=== PATIENT | male | born 1965 | race Caucasian/White ===

== ENCOUNTER 2018-10-18 05:46 | Day surgery (SDC) | payer OTHER ==
[2018-10-18] MEDS ORDERED: ONDANSETRON 4 MG INJ (07:44)
[2018-10-18] MEDS ORDERED: FENTAnyl 50 MCG/ML VIAL (08:13)
[2018-10-18] MEDS ORDERED: MIDAZOLAM 1 MG/ML 2 ML INJ ×2 (08:13)
== END 2018-10-18 10:35 | disposition home or self-care (01) ==
LOC: GIL 05:46
DX: K29.50 Unspecified chronic gastritis without bleeding (principal); K21.9 Gastro-esophageal reflux disease without esophagitis; K44.9 Diaphragmatic hernia without obstruction or gangrene; E78.5 Hyperlipidemia, unspecified; K76.0 Fatty (change of) liver, not elsewhere classified
CPT/HCPCS: 43239; 88305; 88312